=== PATIENT | male | born 2000 | race Hispanic/Latino ===

== ENCOUNTER 2020-01-06 10:27 | Emergency (ER) | payer SELFPAY ==
[2020-01-06] MEDS ORDERED: Lidocaine 1% (PF) 30 ML VIAL ONE (10:38)
[2020-01-06] MEDS ORDERED: Bacitracin 1 PK ONE (10:53)
[2020-01-06] MEDS ORDERED: Acetaminophen 500 MG TAB ONE (10:55)
== END 2020-01-06 11:07 | disposition home or self-care (01) ==
LOC: NAV ERS 10:27
DX: S61.412A Laceration without foreign body of left hand, initial encounter (principal); J45.909 Unspecified asthma, uncomplicated; F17.210 Nicotine dependence, cigarettes, uncomplicated; W18.30XA Fall on same level, unspecified, initial encounter
CPT/HCPCS: 12031; J2001